=== PATIENT | male | born 1980 | race Caucasian/White ===

== ENCOUNTER → 2016-11-17 | Outpatient (CLI) | payer OTHER ==
--- NOTE | ~2016-11-17 | EE ---
Unit #: [id number] #: [id number] Patient: MILY RECINOS [id number] [address] [place], [place] [address] [id number] O MR#: [id number] NAME: MILY RECINOS : 1980 SEX: M STUDY DATE/TIME: 11/17/2016 UNIT: CEEG ROOM: STUDY DESCRIPTION: EEG Attending Physician: Sterling Granados II., M.D. Referring Physician: Sterling Granados II., M.D. Primary Care Physician: Hyun Cueto NEURODIAGNOSTICS REPORT EXAM EEG REASON FOR STUDY Seizures. [employer] TECHNICAL INFORMATION This is a routine EEG performed using the standard International 10-20 System of electrode placement. Hyperventilation was performed. Photic stimulation was also performed. REPORT Throughout the entire study, the best background rhythm seen is approximately 10 Hz. This rhythm is seen in both posterior head regions symmetrically and does attenuate to eye opening and closure. Hyperventilation was performed which failed to reproduce any abnormal buildup. Photic stimulation was also performed which did not elicit any epileptiform abnormalities; however, a decent photic driving response was seen. Throughout the entire study, there were no electrographic seizures recorded nor were there any independent epileptiform abnormalities seen. The patient does become somewhat drowsy; however, no sleep was recorded. INTERPRETATION This is a normal awake EEG. Normal EEG does not rule out the possibility of a seizure disorder. Clinical correlation is advised. Dictated by... Sterling Granados II., M.D. GWS/jonathan TD: 11/26/2016 13:11 JOB #: [id number] Unit #: [id number] #: [id number] Patient: MILY RECINOS NEURODIAGNOSTICS REPORT Page 1 of 1 X NEURODIAGNOSTICS REPORT
== END | disposition home or self-care (01) ==
LOC: CEEG 11-11 09:00
DX: R55 Syncope and collapse (principal)
CPT/HCPCS: 95816